=== PATIENT | female | born 1975 | race Caucasian/White ===

== ENCOUNTER 2021-02-13 05:25 | Emergency (ER) | payer OTHER, SELFPAY ==
[2021-02-13 05:28] VITALS: BP 130/97; PULSE 108; RESP 18; TEMP 37.3; O2SAT 97; BMI 39.1
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
--- NOTE | 2021-02-13 05:58 | ECG_ITS ---
APPROVED REPORT Exam: Resting ECG HR:100 bpm ECG Measurements Heart Rate 100 AXES DC 150 P 49 QRSd 76 QRS 39 QT 338 T 42 QTc 436 Conclusion Normal sinus rhythm Normal ECG Electronically signed by : Ric Hooker MD 02/13/2021 20:20:21
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
[2021-02-13 06:17] VITALS: BP 129/97; PULSE 103; O2SAT 97
[2021-02-13 06:22] LABS: Chloride 104 mmol/L (98-107); Potassium 3.8 mmoL/L (3.5-5.1); Sodium 137 mmol/L (136-145)
[2021-02-13 06:23] LABS: Basophils # 0.1 K/mm3 (0-0.2); Basophils % 0.9 % (0.1-2.0); Eosinophils # 0.2 K/mm3 (0.0-0.4); Eosinophils % 1.6 % (0.1-12.0); Hematocrit 40.5 % (37.0-47.0); Hemoglobin 13.7 g/dL (12.2-16.2); Lymphocytes # 2.4 K/mm3 (0.7-4.5); Lymphocytes % 21.5 % (10-50); Mean Corpuscular HGB Conc 33.8 g/dL (31.8-35.4); Mean Corpuscular Hemoglobin 30.4 pg (27.0-31.2); Mean Platelet Volume 7.6 fl (7.4-10.4); Monocytes # 0.5 K/mm3 (0.1-1.0); Monocytes % 4.9 % (1.7-9.3); Neutrophils # 7.8 K/mm3 (1.8-7.8); Neutrophils % 71.1 % (37.0-80.0); Platelet Count 426 K/mm3 (142-424); Red Cell Distribution Width 13.8 % (11.5-17.5)
[2021-02-13 06:25] LABS: Alanine Aminotransferase 16 U/L (12-78); Alkaline Phosphatase 129 U/L (38-126); Anion Gap 13.8 mEq/L (5-15); Aspartate Amino Transferase 24 U/L (14-36); Bilirubin,Direct 0.1 mg/dl (0.0-0.4); Bilirubin,Indirect 0.2 mg/dL (0.0-0.9); Bilirubin,Total 0.3 mg/dl (0.2-1.3); Bilirubin,Unconjugated 0.2 mg/dL (0.0-1.1); Blood Urea Nitrogen 11 mg/dl (7-17); Carbon Dioxide 23 mmol/L (22.0-30.0); Creatinine Clearance Estimated 214 mL/min (50-200); Estimated Glomerular Filt Rate 109 ml/min (>60); GFR (African American) 131 ML/MIN (>60)
[2021-02-13 06:26] LABS: Albumin Level 4.4 g/dl (3.5-5.0); Calcium 9.1 mg/dl (8.4-10.2); Glucose 144 mg/dl (74-100); Total Protein,Serum 7.4 g/dl (6.3-8.2)
[2021-02-13 06:30] VITALS: BP 136/81; PULSE 101; O2SAT 97
[2021-02-13 06:32] LABS: HCG Qualitative, Serum Negative (Negative)
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
[2021-02-13 06:38] LABS: Troponin I < 0.01 ng/ml (0.00-0.034)
[2021-02-13 07:24] VITALS: BP 141/88; PULSE 94; O2SAT 97
[2021-02-13 07:38] VITALS: BP 146/94; PULSE 75; RESP 18; TEMP 36.9; O2SAT 98
[2021-02-13 08:06] LABS: Microscopic, Urine URINE MICROSCOPIC (MICROSCOPIC)
[2021-02-13 08:11] LABS: Appearance,Urine CLEAR (Clear); Bilirubin,Urine Negative (Negative); Blood, Urine Negative (Negative); Color,Urine YELLOW (Yellow); Glucose,Urine (UA) Negative (Negative); Ketones,Urine Negative (Negative); Leukocyte Esterase,Urine 1+ (Negative); Nitrate,Urine Negative (Negative); Protein,Urine Negative (Negative); Specific Gravity, Urine <= 1.005 (1.005-1.030); Urobilinogen,Urine 0.2 EU/dl (0.2)
[2021-02-13 08:20] LABS: Bacteria,Urine 1+ /lpf
== END 2021-02-13 08:00 | disposition home or self-care (01) ==
PROVIDERS: Emergency Provider Emergency Medicine
DX: S06.0X0A Concussion without loss of consciousness, initial encounter (principal); S16.1XXA Strain of muscle, fascia and tendon at neck level, initial encounter; S20.219A Contusion of unspecified front wall of thorax, initial encounter; S43.402A Unspecified sprain of left shoulder joint, initial encounter; V89.2XXA Person injured in unspecified motor-vehicle accident, traffic, initial encounter
CPT/HCPCS: 70450; 71045; 71275; 72125; 72170; 73030; 74177; 80048; 80076; 81001; 84484; 84703; 85025; 87086; 93005; 99283; Q9967